=== PATIENT | male | born 1975 | race Two or more races ===

== ENCOUNTER 2024-05-10 10:25 | Outpatient (RCR) | payer MEDICAID, SELFPAY ==
--- NOTE | 2024-05-10 10:42 | PTNOTE_ITS ---
PT OP Initial Eval Patient Information Outpatient Physical Therapy Treatment Date: 05/10/24 Visit Reasons: PAIN IN RT KNEE Medical Diagnosis: M25.561 Start of Care: 05/10/24 Date of Onset: 2 months ago Smoking Status Smoking Status: Never smoker Initial Assessment Subjective: Pt is 49 yr old citizen of [place] speaking male who reports insidious onset of R knee pain x2 months. He is having less pain now and able to work. 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 PMH: high cholesterol Imaging: Xray report in chart: negative Pt goal: not sure since the R knee pain isn't bad Objective: R knee ArOM: Extension: full Flexion: 120 deg Strength: Quads: 4/5 HS: 4/5 Nicci's: negative Varus/valgus: negative Assessment: Pt presents with good strength and full ROM of R knee and special testing was negative. He is working every day and climbing ladders and not having significant pain in the knee anymore and would rather do HEP instead of coming to therapy. [employer] and [employer] Goals Eval and D/C Treatment Plan Eval and D/C Certification Dates: 05/10/24 Procedure Charges OP PT Eval Mod Complex 30 minutes: Yes
== END 2024-05-21 23:59 | disposition home or self-care (01) ==
LOC: CPTX 10:25
PROVIDERS: PCP Internal Medicine; Referring Provider Internal Medicine; Visit Provider Internal Medicine
DX: M25.561 Pain in right knee (principal)
CPT/HCPCS: 97162